=== PATIENT | female | born 1975 | race Two or more races ===

== ENCOUNTER 2016-09-09 19:17 | Emergency (ER) | payer SELFPAY ==
[~2016-09-09] VITALS: Ht 162.6 cm; Wt 73.5 kg
[2016-09-09 19:22] VITALS: BP 115/65
--- NOTE | 2016-09-09 19:42 | NUR ---
TO BED 2 A 41 YO FEMALE BB SELF; RASH ABD AND BREAST X 4 DAYS. NAD NOTED, VSS, AFEBRILE. COMFORT MEASURES RENDERED. AWAITING FOR MD D[place]ERTY.
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
== END 2016-09-09 20:38 | disposition home or self-care (01) ==
LOC: ER 19:21
DX: O26.891 Other specified pregnancy related conditions, first trimester (principal); R21 Rash and other nonspecific skin eruption; Z3A.12 12 weeks gestation of pregnancy
CPT/HCPCS: A4606; Z7502; Z7610

== ENCOUNTER 2017-02-17 18:41 | Emergency (ER) | payer MEDICAID ==
[~2017-02-17] VITALS: Ht 162.6 cm; Wt 74.8 kg
[2017-02-17 19:11] VITALS: BP 129/78
== END 2017-02-17 19:52 | disposition home or self-care (01) ==
LOC: ER 18:49
DX: O99.513 Diseases of the respiratory system complicating pregnancy, third trimester (principal); J06.9 Acute upper respiratory infection, unspecified; Z3A.37 37 weeks gestation of pregnancy
CPT/HCPCS: 99281; A4606; Z7610; Z7502

== ENCOUNTER 2018-01-23 19:32 | Emergency (ER) | payer MEDICAID, OTHER ==
[~2018-01-23] VITALS: Ht 165.1 cm; Wt 72.6 kg
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
[2018-01-23] MEDS ORDERED: IBUPROFEN 600 MG TABLET PO ONE (19:57)
[2018-01-23] MEDS: IBUPROFEN 600 MG TABLET PO ONE (19:59)
[2018-01-23 21:10] VITALS: BP 114/72
== END 2018-01-23 21:11 | disposition home or self-care (01) ==
LOC: ER 19:40
DX: S16.1XXA Strain of muscle, fascia and tendon at neck level, initial encounter (principal); S93.491A Sprain of other ligament of right ankle, initial encounter; S20.211A Contusion of right front wall of thorax, initial encounter; V49.49XA Driver injured in collision with other motor vehicles in traffic accident, initial encounter; Y93.89 Activity, other specified; Y92.413 State road as the place of occurrence of the external cause; Y99.8 Other external cause status
CPT/HCPCS: 71045-TC; 73610-TC; A4606; Z7610